=== PATIENT | female | born 1995 | race African-American/Black ===

== ENCOUNTER 2018-06-03 04:19 | Emergency (ER) | payer BC ==
[~2018-06-03] VITALS: Ht 149.9 cm; Wt 79.8 kg
[2018-06-03] MEDS ORDERED: LOMOTIL TABLET1 EACH PO (04:32)
[2018-06-03] MEDS ORDERED: BENTYL 20 MG TA20 M1 PO (04:33)
[2018-06-03] MEDS ORDERED: XIFAXAN550 M1 PO (04:34)
[2018-06-03] MEDS ORDERED: VITAMIN D250000 UNIT PO (04:34)
[2018-06-03 05:13] VITALS: BP 140/83
== END 2018-06-03 05:15 | disposition home or self-care (01) ==
LOC: M.ERS 04:19
DX: B34.9 Viral infection, unspecified (principal); Z91.09 Other allergy status, other than to drugs and biological substances